=== PATIENT | male | born 1990 | race Caucasian/White ===

== ENCOUNTER 2021-09-03 20:24 | Emergency (ER) | payer OTHER ==
[2021-09-03 20:31] VITALS: BP 145/92; PULSE 79; RESP 20; TEMP 97
[2021-09-03] MEDS ORDERED: DIPH,PERTUS(ACELL)TETVAC-LF 0.5 ML VIAL IM ONE (20:46)
[2021-09-03] MEDS ORDERED: BACITRACIN OINT 1 EACH PACKET TOPICAL ONE (20:46)
--- NOTE | 2021-09-03 20:50 | ED ---
General Adult HPI - General Chief complaint: Recheck/Abnormal Lab/Rx Stated complaint: Work comp injury Time Seen by Provider: 09/03/21 20:40 Source: patient, RN notes reviewed Mode of arrival: ambulatory Limitations: no limitations - History of Present Illness Initial comments: Well-appearing 30-year-old gentleman presents to the emergency room with co mplaints of an abrasion to his left hand sustained from a psychiatric patient during arrest. There is no active bleeding. The abrasion is approximately 1 cm. Patient is unsure of his last tetanus shot is up-to-date. He denies any medical history no medicines on a daily basis. -: hour(s) (1) Location: left, upper extremity (hand) Severity scale (1-10): 0 Associated Symptoms: denies other symptoms - Related Data Allergies Allergy/AdvReac Type Severity Reaction Status Date / Time No Known Allergies Allergy Verified 09/03/21 20:29 Review of Systems ROS Statement: Those systems with pertinent positive or pertinent negative responses have been documented in the HPI. ROS Other: All systems not noted in ROS Statement are negative. Past Medical History Past Medical History: No Reported History History of Any Multi-Drug Resistant Organisms: None Reported Past Surgical History: No Surgical Hx Reported Past Psychological History: No Psychological Hx Reported Smoking Status: Never smoker Past Alcohol Use History: None Reported Past Drug Use History: None Reported General Exam Limitations: no limitations General appearance: alert, in no apparent distress Head exam: Present: atraumatic, normocephalic, normal inspection Eye exam: Present: normal appearance Respiratory exam: Present: normal lung sounds bilaterally. Absent: respiratory distress, wheezes, rales, rhonchi, stridor Cardiovascular Exam: Present: regular rate, normal rhythm, normal heart sounds. Absent: systolic murmur, diastolic murmur, rubs, gallop, clicks Extremities exam: Present: normal inspection, full ROM, normal capillary refill. Absent: tenderness Neurological exam: Present: alert, oriented X3, normal gait Psychiatric exam: Present: normal affect, normal mood Skin exam: Present: warm, dry, intact, normal color. Absent: rash, cyanosis, diaphoretic Course Vital Signs 09/03/21 20:29 Temperature 97.0 F L Pulse Rate 79 Respiratory 20 Rate Blood Pressure 145/92 O2 Sat by Pulse 98 Oximetry Medical Decision Making - Medical Decision Making Well-appearing 30-year-old male presents to the emergency room after sustaining a abrasion to his left hand during the arrest of a psychiatric patient. The wound was washed in the emergency room with soap and water and bacitracin dressing was applied. Patient's tetanus shot was updated at this visit. He denies any other medical history. Denies any other injuries. He'll be d ischarged home to follow up with his primary care doctor as needed. Disposition Clinical Impression: Abrasion hand Disposition: HOME SELF-CARE Condition: Good Instructions (If sedation given, give patient instructions): Abrasion (ED) Additional Instructions: Wash wound with warm soapy water twice a day and use bacitracin dressing. Follow-up with the primary care doctor as needed. Return to the emergency room with any new or worsening symptoms. Is patient prescribed a controlled substance at d/c from ED?: No Referrals: None,Stated [Primary Care Provider] - 1-2 days Time of Disposition: 20:50
== END 2021-09-03 21:39 | disposition home or self-care (01) ==
LOC: EC 20:24
DX: S60.512A Abrasion of left hand, initial encounter (principal); Z23 Encounter for immunization; W50.4XXA Accidental scratch by another person, initial encounter; Y99.0 Civilian activity done for income or pay
CPT/HCPCS: 90471; 90715; 99282